=== PATIENT | male | born 2000 | race Caucasian/White ===

== ENCOUNTER 2019-09-26 10:06 | Emergency (ER) | payer MEDICAID ==
--- NOTE | 2019-09-26 11:05 | RAD ---
EXAM: Two views chest PROVIDED CLINICAL HISTORY: Hemoptysis COMPARISON: None FINDINGS: Cardiac and mediastinal silhouette appears within normal limits. Lungs appear free of significant opa city. No pleural fluid or pneumothorax apparent. IMPRESSION: No evidence for an acute cardiopulmonary process.
== END 2019-09-26 11:18 | disposition home or self-care (01) ==
LOC: ERS 10:06
DX: R05 Cough (principal); G40.909 Epilepsy, unspecified, not intractable, without status epilepticus; F41.9 Anxiety disorder, unspecified; F43.10 Post-traumatic stress disorder, unspecified
CPT/HCPCS: 71046